=== PATIENT | male | born 1950 | race Caucasian/White ===

== ENCOUNTER 2017-02-05 14:11 | Day surgery (SDC) | payer OTHER ==
[2017-02-05] MEDS ORDERED: MIDAZOLAM 2 MG/2 ML VIAL IVP ONE (14:25)
[2017-02-05] MEDS ORDERED: fentaNYL 100 MCG/2 ML INJ IVP ONE (14:25)
[2017-02-05] MEDS ORDERED: NS 500 ML IV ONE (14:25)
[2017-02-05] MEDS ORDERED: BENZOCAINE UNIT DOSE SPRAY HURRICAINE MM ONE (14:25)
[2017-02-05] MEDS ORDERED: PROPOFOL/EMULSION 500 MG/50 ML BOTTLE IV ONE (15:05)
[2017-02-05] MEDS ORDERED: LIDOCAINE 1% 5 ML SDV ONE (15:06)
[2017-02-05] MEDS ORDERED: SUCCINYLCHOLINE CHLORIDE*ANESTHESIA ONLY*200 MG/10 ML SYR IVP ONE (15:06)
--- NOTE | 2017-02-05 15:15 | PDANEPAE ---
ANE Past Medical History - Cardiovascular History Hx Hypertension: No Hx Arrhythmias: No Hx Chest Pain: No Hx Coronary Artery / Peripheral Vascular Disease: No Hx CHF / Valvular Disease: No Hx Palpitations: No Cardiovascular History Comment: Mitral valve prolapse - Pulmonary History Hx COPD: No Hx Asthma/Reactive Airway Disease: No Hx Recent Upper Respiratory Infection: No Hx Oxygen in Use at Home: No Hx Sleep Apnea: No - Neurologic History Hx Cerebrovascular Accident: No Hx Seizures: No Hx Dementia: No - Endocrine History Hx Diabetes: No Hypothyroid: No Hyperthyroid: No Obesity: no - Renal History Hx Renal Disorders: No - Liver History Hx Hepatic Disorders: No - Neurological & Psychiatric Hx Hx Neurological and Psychiatric Disorders: No ANE Review of Systems Review of Systems: ANE Patient History - Allergies Allergies/Adverse Reactions: No Known Allergies Allergy (Unverified 02/05/17 14:25) - Smoking Hx Smoking Status: Former smoker ANE Labs/Vital Signs - Vital Signs Height: 173 cm Weight: 63.5 kg ANE Physical Exam - Airway Neck exam: FROM Mallampati Score: Class 1 Mouth exam: normal dental/mouth exam - Pulmonary Pulmonary: no respiratory distress - Cardiovascular Cardiovascular: regular rate and rhythym - ASA Status ASA Status: II ANE Anesthesia Plan Anesthesia Plan: GA with mask
--- NOTE | 2017-02-05 16:40 | ECHO ---
[email or web address] [address] [address] Main: [phone] Fax: Transesophageal Echocardiography Name: SYLWIA BOGGS MR#: [id number] Study Date: 02/05/2017 Study Time: 03:06 PM Date of : 1950 Age: 66 year(s) Height: ( ) Weight: ( ) BSA: Gender: Male Examination: KARMA Indication: Mitral valve prolapse Image Quality: Contrast: Requested by: Arun Garcia Heart Rate: Rhythm: BP: / Procedure Staff Lubricating Specialist: Benjamin Corona Reading Physician: Arun Garcia Requesting Provider: KARMA Exam Details Conclusions: Normal global systolic LV function. There is severe prolapse of the posterior leaflet of the mitral valve. Severe mitral valve regurgitation is present. There is a hypermobile structure consistent with torn chordae noted in the left atrium. Measurements: Chambers Valvular Assessment AV/MV Valvular Assessment TV/PV Normal Normal Normal Name Value Range Name Value Range Name Value Range Additional Measurements: Findings: Left Ventricle: Normal global systolic LV function. Left Atrial Appendage: Good color flow doppler in the left atrial appendage. Mitral Valve: There is severe prolapse of the posterior leaflet of the mitral valve. Severe mitral valve regurgitation is present. There is a hypermobile structure consistent with torn chordae noted in the left atrium. Aortic Valve: The aortic valve is tri-leaflet. The aortic valve is normal in appearance and function. Trivial aortic valve regurgitation. Patient: SYLWIA BOGGS Study Date: 02/05/2017 Page 1 of 2 03:06 PM Tricuspid Valve: The tricuspid valve is normal in appearance and function. Pulmonic Valve: The pulmonic valve is normal in appearance and function. Aorta: The aorta is normal. Pericardium: No pericardial effusion. l1n (No Signature Object) Patient: SYLWIA BOGGS Study Date: 02/05/2017 Page 2 of 2 03:06 PM [id number]
--- NOTE | 2017-02-05 21:51 | GPN ---
[f rep st] PROCEDURE NOTE DATE OF PROCEDURE: 02/05/2017 PROCEDURE PERFORMED: Transesophageal echocardiogram. INDICATION FOR PROCEDURE: Severe mitral valve prolapse with severe mitral regurgitation. DESCRIPTION OF PROCEDURE: After informed consent was obtained, Mr. Gutierrez was brought to the cardiac procedure suite. He signed consents for both KARMA and anesthesia with the assistance of Anesthesia. Once consents were obtained, a bite block was put in place. The patient was sedated with propofol. Once the appropriate level of sedation was achieved, KARMA probe was passed without incident. KARMA pro be was used to take images of all cardiac structures with primary focus on the mitral valve. Please see complete 2-D echocardiogram for full report. The patient tolerated the procedure well. There we re no complications. The probe was removed. He awoke from sedation without complications. He is fe eling well at the time of this dictation. CONCLUSIONS: Severe P2 prolapse of the posterior leaflet with what appeared to be ruptured chordae. Severe eccentric anteriorly directed mitral regurgitation. PLAN: We will consult with Dr. Dailey for surgical opinion regarding mitral valve repair. /[id number]/MODL
== END 2017-02-05 17:06 | disposition home or self-care (01) ==
LOC: FCATH 14:11
PROVIDERS: ATTEND Internal Medicine Cardiovascular Disease
PROC: B245ZZ4 Ultrasonography of Left Heart, Transesophageal (ICD-10-PCS; principal; 2017-02-05)
DX: I34.0 Nonrheumatic mitral (valve) insufficiency (principal); I34.1 Nonrheumatic mitral (valve) prolapse; I25.10 Atherosclerotic heart disease of native coronary artery without angina pectoris; Z79.82 Long term (current) use of aspirin
CPT/HCPCS: J0330; J2704

== ENCOUNTER 2017-04-02 14:12 | Inpatient (IN) | payer OTHER ==
[2017-04-02] MEDS ORDERED: DIAZEPAM 5 MG TAB PO ONE (14:18)
[2017-04-02] MEDS ORDERED: FAMOTIDINE 20 MG TAB PO ONE (14:18)
[2017-04-02] MEDS ORDERED: ASPIRIN EC 325 MG TAB PO ONE (14:18)
[2017-04-02] MEDS ORDERED: diphenhydrAMINE 25 MG CAP PO ONE (14:18)
[2017-04-02] MEDS ORDERED: NS 1,000 ML IV ONE (14:18)
--- NOTE | 2017-04-02 14:42 | CPEKG ---
Heart Rate: 61 RR Interval: 984 P-R Interval: 152 QRSD Interval: 80 QT Interval: 404 QTC Interval: 407 P Alma: 47 QRS Alma: 55 T Wave Alma: 46 EKG Severity - NORMAL ECG - EKG Impression: SINUS RHYTHM Electronically Signed By: Duane Siddiqui 03-Apr-2017 13:07:57
--- NOTE | 2017-04-02 14:56 | PDHPUP ---
History & Physical Update H&P update statement: This history and physical update is based on an assessment of the patient which was completed after admission or registration (within 24 hours), but prior to the surgery/procedure. Mr. Gutierrez is a 67 year old gentleman with severe MR and Mitral Valve prolapse with suspected chordal rupture who presents for pre operative Left Heart Catheterization. He had known CAD based on Calicum Score H&P update: H&P reviewed & patient examined, no change in patient's condition since H&P completed
--- NOTE | 2017-04-02 14:56 | PDPROPOC ---
Sedation Plan of Care Sedation Plan of Care: vital signs stable, mental status noted, patient educated of risks, benefits, alternatives, patient can tolerate sedation ASA Classification: ASA 2 Planned drugs: fentanyl, midazolam Mallampati Score: Class 2 Mallampati Reference Image: Patient passed 3-3-2 rule?: Yes
[2017-04-02] MEDS ORDERED: LIDOCAINE 1% 300 MG/30 ML SDV ONE (14:59)
[2017-04-02 15:00] LABS: PLATELET COUNT 181 10^3/uL (150-400)
[2017-04-02] MEDS ORDERED: fentaNYL 100 MCG/2 ML INJ ONE (15:00)
[2017-04-02] MEDS ORDERED: IOPAMIDOL (ISOVUE-370) 150 ML BTL IV ONE (15:00)
[2017-04-02] MEDS ORDERED: MIDAZOLAM 2 MG/2 ML VIAL ONE (15:00)
[2017-04-02 15:14] LABS: INR 0.95 (0.83-1.16); PROTIME(PATIENT) 12.9 SEC (12.0-15.0)
[2017-04-02] MEDS ORDERED: ATROPINE SULFATE 1 MG/10 ML SYR ONE (16:44)
[2017-04-02] MEDS ORDERED: HYDROCODONE/APAP 5/325 TAB PO PRN (16:48)
[2017-04-02] MEDS ORDERED: OXYCODONE/APAP 5/325 TAB PO PRN (16:48)
[2017-04-02] MEDS ORDERED: ATROPINE SULFATE 1 MG/10 ML SYR IVP PRN (16:48)
[2017-04-02] MEDS ORDERED: ONDANSETRON 4 MG/2 ML VIAL IVP PRN (16:48)
[2017-04-02] MEDS ORDERED: NITROGLYCERIN 0.4 MG BTL SL PRN (16:48)
[2017-04-02] MEDS: PHENobarbital 30 MG TAB PO SCH (20:19)
[2017-04-02] MEDS: SENNOSIDES/DOCUSATE SODIUM TAB PO SCH (20:19)
[2017-04-02] MEDS: MUPIROCIN 2% 22 GM OINT NS SCH (20:20)
[2017-04-02] MEDS: PHENYTOIN SODIUM EXTENDED 100 MG CAP PO SCH (20:20)
[2017-04-02] MEDS ORDERED: CHLORHEXIDINE GLUC HIBICLENS 118 ML BTL TP SCH (21:00)
--- NOTE | 2017-04-03 03:00 | GPN ---
[f rep st] PROCEDURE NOTE DATE OF PROCEDURE: 04/02/2017 PROCEDURE PERFORMED: Diagnostic left heart catheterization. INDICATION FOR PROCEDURE: Preoperative evaluation in anticipation of mitral valve replacement tomorr ow with Dr. Dailey in the setting of severe mitral regurgitation and P2 mitral valve prolapse. PROCEDURE: After informed conformed consent was obtained, the patient was brought to the cardiac cat heterization lab where he was prepped and draped in sterile fashion. Using the micropuncture technBackpack ue with modified Seldinger technique, 6-Pu[place] Rican catheter was placed in the right common femoral artery without complications. JL4.5 catheter was used to take images of the left coronary anatomy in multi ple projections. The JL4 catheter was exchanged over a guidewire for a JR4 catheter. JR4 catheter w as used to take images of the right coronary anatomy in multiple projections. JR4 catheter exchanged over a guidewire for angled pigtail catheter. Angled pigtail catheter was used to cross the aortic valve. LVEDP was assessed. Left ventricular function and aortic valve gradient were assessed. Angl ed pigtail catheter was removed over a guidewire without complications. Imaging of the right common femoral artery site demonstrated appropriate placement of the 6-Pu[place]ican sheath above the bifurcation a nd below the level of the inguinal ligament. FINDINGS: 1. Left main is normal size and caliber and trifurcates into a circumflex coronary artery, ramus bra nch, and LAD. There is no evidence of coronary artery disease within the left main. 2. Left anterior descending artery has multiple small diagonal branches and septal perforators. The re is no evidence of coronary artery disease within the left anterior descending artery or branch ves sels. 3. Circumflex vessel is a nondominant vessel. There is a small first obtuse marginal branch. There is no evidence of coronary artery disease within the obtuse marginal branch. Ramus branch is free o f coronary artery disease, as well. 4. The right coronary artery is a large caliber dominant vessel that branches into PDA and PLV branc h. There is no evidence of coronary artery disease within the right coronary artery. HEMODYNAMICS: LVEF 60% to 65%. LVEDP 11 mmHg. Aortic valve gradient: None. There was 2 to 3+ mitral regurgitation noted on left ventriculogram. CONCLUSIONS: 1. Normal coronary arteries. 2. Normal left ventricular function. 3. Severe mitral regurgitation. PLAN: I have discussed these finding results with Dr. Dailey. No plan for coronary artery bypass gra ft surgery. /[id number]/MODL
[2017-04-03] MEDS ORDERED: VERAPAMIL 5 MG, NITROGLYCERIN 2.5 MG, HEPARIN 500 UNIT, SODIUM BICARBONATE 0.2 MEQ in L... MISC ONE (06:30)
[2017-04-03] MEDS ORDERED: INSULIN REGULAR HUMAN 100 UNIT in NS 100 ML IV ONE (06:30)
[2017-04-03] MEDS ORDERED: TRANEXAMIC ACID 1,000 MG in NS (SYRINGE) 50 ML IV ONE (06:30)
[2017-04-03] MEDS ORDERED: niCARdipine/NACL 200 ML IV ONE (06:30)
[2017-04-03] MEDS ORDERED: MANNITOL 25% 12.5 GM/50 ML VIAL IVP ONE (06:30)
[2017-04-03] MEDS ORDERED: NOREPINEPHRINE BITARTRATE 16 MG in NS 250 ML IV ONE (06:30)
[2017-04-03] MEDS ORDERED: DOPamine 400 MG in D5W 250 ML IV ONE (06:30)
[2017-04-03] MEDS ORDERED: CITRATE DEXTROSE SOLN 500 ML BAG MISC ONE (06:30)
[2017-04-03] MEDS ORDERED: ceFAZolin 2 GM/SWFI 2 GM/20 ML SYR IVP ONE (06:30)
[2017-04-03] MEDS ORDERED: PHENYLEPHRINE HCL 50 MG in NS 250 ML IV ONE (06:30)
[2017-04-03] MEDS ORDERED: SODIUM BICARBONATE 20 MEQ, LIDOCAINE 1% 10 ML in NORMOSOL-R 1,000 ML MISC ONE (06:30)
[2017-04-03] MEDS ORDERED: MILRINONE/DEXTROSE/100 ML BAG IV ONE (06:40)
[2017-04-03] MEDS ORDERED: CALCIUM CHLORIDE 1 GM/10 ML INJ ONE ×3 (06:40→12:01)
[2017-04-03] MEDS ORDERED: PROTAMINE SULFATE 50 MG/5 ML VIAL IVP ONE (06:40)
[2017-04-03] MEDS ORDERED: HEPARIN 10,000 UNIT/10 ML MDV (1,000 UNIT/ML) ONE ×2 (06:41→06:44)
[2017-04-03] MEDS ORDERED: NA BICARBONATE 50 MEQ/50 ML VIAL ONE (06:41)
[2017-04-03] MEDS ORDERED: ADENOSINE 6 MG/2 ML VIAL ONE (06:42)
[2017-04-03] MEDS ORDERED: niCARdipine/NACL/200 ML BAG IV ONE (06:42)
[2017-04-03] MEDS ORDERED: AMIODARONE HCL 150 MG/3 ML VIAL ONE ×2 (06:42→06:45)
[2017-04-03] MEDS ORDERED: ALBUMIN 5% 250 ML BOTTLE IV ONE ×2 (06:43→11:38)
[2017-04-03] MEDS ORDERED: ceFAZolin 1 GM VIAL ONE (06:43)
[2017-04-03] MEDS ORDERED: CITRATE DEXTROSE SOLN 500 ML BAG ONE (06:44)
[2017-04-03] MEDS ORDERED: LIDOCAINE 2% 100 MG/5 ML SYR ONE ×2 (06:44→08:45)
[2017-04-03] MEDS ORDERED: MAGNESIUM SULFATE 1 GM/2 ML VIAL ONE (06:45)
[2017-04-03] MEDS ORDERED: methylPREDNISolone SOD SUCC 1 GM/8 ML VIAL ONE (06:45)
--- NOTE | 2017-04-03 08:12 | PDHPUP ---
History & Physical Update H&P update statement: This history and physical update is based on an assessment of the patient which was completed after admission or registration (within 24 hours), but prior to the surgery/procedure.
[2017-04-03] MEDS ORDERED: MIDAZOLAM 2 MG/2 ML VIAL ONE ×2 (08:21→08:41)
--- NOTE | 2017-04-03 08:23 | PDANEPAE ---
ANE History of Present Illness severe MR s/f MV Repair, sternotomy ANE Past Medical History - Cardiovascular History Hx Hypertension: No Hx Arrhythmias: No Hx Chest Pain: No Hx Coronary Artery / Peripheral Vascular Disease: No Hx CHF / Valvular Disease: No Hx Palpitations: No Cardiovascular History Comment: Mitral valve prolapse. MURMUR - Pulmonary History Hx COPD: No Hx Asthma/Reactive Airway Disease: No Hx Recent Upper Respiratory Infection: No Hx Oxygen in Use at Home: No Hx Sleep Apnea: No Sleep Apnea Screening Result - Last Documented: Negative Pulmonary History Comment: PNEUMONIA 2007 - Neurologic History Hx Cerebrovascular Accident: No Hx Seizures: No Hx Dementia: No Neurologic History Comment: EPILEPSY SINCE AGE 15 - Endocrine History Hx Diabetes: No - Renal History Hx Renal Disorders: No Renal History Comment: DOES NOT HAVE 100 PERCENT FLOW RESULT OF INJURY AGE 15 - Liver History Hx Hepatic Disorders: No - Neurological & Psychiatric Hx Hx Neurological and Psychiatric Disorders: No - Cancer History Hx Cancer: No - Congenital Disorder History Hx Congenital Disorders: No - GI History Hx Gastrointestinal Disorders: No - Other Health History Other Health History: NEG - Chronic Pain History Chronic Pain: No - Surgical History Prior Surgeries: RT CATARACT. VASECTOMY ANE Review of Systems Review of Systems: - Exercise capacity METS (RN): 4 METS ANE Patient History - Allergies Allergies/Adverse Reactions: No Known Allergies Allergy (Verified 03/26/17 10:48) - Home Medications Home medications: home medication list seen and reviewed Home Medications: Aspirin [Aspirin 81mg (*)] 81 mg PO Q7D 03/26/17 [Last Taken 03/29/17] Cholecalciferol Vit D3 [Vitamin D3 (*)] 5,000 units PO DAILY 03/26/17 [Last Taken 03/29/17] Quanah-3 Fatty Acids [Fish Oil 1000 mg (*)] 1,000 mg PO DAILY 03/26/17 [Last Taken 03/29/17] PHENobarbital [PHENobarbital 30mg (*)] 30 mg PO HS 03/26/17 [Last Taken 04/01/17 ] Phenytoin Sodium Extended [Dilantin (*)] 100 mg PO HS 03/26/17 [Last Taken 04/01] Rosuvastatin Calcium [Crestor 40mg (*)] 40 mg PO DAILY 03/26/17 [Last Taken ] - NPO status NPO Status: no food or drink >8 hours NPO Since - Liquids (Date): 04/03/17 NPO Since - Liquids (Time): 00:00 NPO Since - Solids (Date): 04/03/17 NPO Since - Solids (Time): 00:00 - Anes Hx Anes Hx: no prior problems - Smoking Hx Smoking Status: Former smoker - Alcohol Use Alcohol Use: Occasionally - Family Anes Hx Family Anes Hx: none Family Hx Anesthesia Complications: NEG ANE Labs/Vital Signs - Labs Result Diagrams: 04/02/17 14:50 04/03/17 05:20 - Vital Signs Blood Pressure: 120/65 Heart Rate: 60 Respiratory Rate: 14 O2 Sat (%): 94 Height: 173 cm Weight: 62.1 kg ANE Physical Exam - Airway Mouth exam: normal dental/mouth exam - Pulmonary Pulmonary: no respiratory distress - Cardiovascular Cardiovascular: regular rate and rhythym - ASA Status ASA Status: II ANE Anesthesia Plan Anesthesia Plan: general endotracheal anesthesia Lines/Monitors: arterial line, central line, KARMA
[2017-04-03] MEDS ORDERED: REMIFENTANIL HCL 1 MG VIAL ONE (08:41)
[2017-04-03] MEDS ORDERED: fentaNYL 250 MCG/5 ML INJ ONE (08:41)
[2017-04-03] MEDS ORDERED: PROPOFOL/EMULSION 500 MG/50 ML BOTTLE IV ONE (08:42)
[2017-04-03] MEDS ORDERED: ROCURONIUM 100 MG/10 ML VIAL ONE (08:44)
[2017-04-03] MEDS ORDERED: PHENYLEPHRINE HCL 100 MCG/ML SYR ONE (08:44)
[2017-04-03] MEDS ORDERED: ONDANSETRON 4 MG/2 ML VIAL ONE (08:44)
[2017-04-03] MEDS ORDERED: DEXAMETHASONE 4 MG/ML VIAL ONE ×2 (08:44)
[2017-04-03] MEDS ORDERED: LIDOCAINE HCL 160 MG/4 ML LTA KIT TP ONE (08:45)
[2017-04-03] MEDS ORDERED: MIDAZOLAM 2 MG/2 ML VIAL IVP ONE (10:08)
[2017-04-03] MEDS ORDERED: MAGNESIUM SULF 2 GM/WATER 50 ML BAG IV ONE (11:38)
[2017-04-03] MEDS ORDERED: MINERAL OIL 10 ML VIAL ONE (11:52)
[2017-04-03] MEDS ORDERED: DEXMEDETOMIDINE/NS 4MCG/ML 50 ML BTL IV ONE (11:52)
[2017-04-03] MEDS ORDERED: DEXMEDETOMIDINE HCL 400 MCG in NS 100 ML IV SCH (12:00)
[2017-04-03] MEDS ORDERED: fentaNYL 25 MCG PATCH TD SCH (12:00)
[2017-04-03] MEDS ORDERED: KETOROLAC 30 MG/1 ML SDV ONE (12:18)
[2017-04-03] MEDS ORDERED: SUGAMMADEX SODIUM 200 MG/2 ML VIAL IVP ONE (12:20)
[2017-04-03] MEDS ORDERED: PANTOPRAZOLE SODIUM 40 MG VIAL IVP ONE (12:36)
[2017-04-03] MEDS ORDERED: D50W 25 GM/50 ML SYR IVP PRN (12:36)
[2017-04-03] MEDS ORDERED: ONDANSETRON 4 MG/2 ML VIAL IVP PRN (12:36)
[2017-04-03] MEDS ORDERED: SODIUM CL NASAL 45 ML BTL EACHNARE PRN (12:36)
[2017-04-03] MEDS ORDERED: MAGNESIUM HYDROXIDE 30 ML UDCUP PO PRN (12:36)
[2017-04-03] MEDS ORDERED: fentaNYL 100 MCG/2 ML INJ IVP PRN (12:36)
[2017-04-03] MEDS ORDERED: LACTULOSE 20 GM/30 ML UDCUP PO PRN (12:36)
[2017-04-03] MEDS ORDERED: BISACODYL 10 MG SUPP PR PRN (12:36)
[2017-04-03] MEDS ORDERED: MEPERIDINE 25 MG/ML SYR IVP PRN (12:36)
[2017-04-03] MEDS ORDERED: ACETAMINOPHEN 650 MG SUPP PR PRN (12:36)
[2017-04-03] MEDS ORDERED: POTASSIUM Cl (KCl) 50 ML IV PRN (12:36)
[2017-04-03] MEDS ORDERED: METOCLOPRAMIDE 10 MG/2 ML VIAL IVP PRN (12:36)
[2017-04-03] MEDS ORDERED: ACETAMINOPHEN 325 MG TAB PO PRN (12:36)
[2017-04-03] MEDS ORDERED: POLYETHYLENE GLYCOL 3350 17 GM PKT PO PRN (12:36)
[2017-04-03] MEDS ORDERED: CEPACOL LOZENGE PO PRN (12:36)
[2017-04-03] MEDS ORDERED: ONDANSETRON DISINTEGRATING 4 MG TAB PO PRN (12:36)
[2017-04-03] MEDS ORDERED: MAGNESIUM SULF 2 GM/WATER 50 ML IV ONE (12:36)
[2017-04-03] MEDS ORDERED: NS 1,000 ML IV SCH (12:45)
[2017-04-03] MEDS ORDERED: INSULIN REGULAR HUMAN 100 UNIT in NS 100 ML IV SCH (13:00)
[2017-04-03] MEDS ORDERED: SODIUM BICARBONATE 50 MEQ/50 ML SYR ONE (13:22)
[2017-04-03] MEDS: ceFAZolin 2 GM/DEXTROSE 100 ML IV SCH ×2 (13:43→22:01)
[2017-04-03] MEDS: ALBUMIN 5% 250 ML IV PRN ×2 (13:45→14:46)
[2017-04-03] MEDS ORDERED: NA BICARBONATE 50 MEQ/50 ML VIAL IV ONE (14:30)
--- NOTE | 2017-04-03 14:33 | CPEKG ---
Heart Rate: 61 RR Interval: 984 P-R Interval: 128 QRSD Interval: 80 QT Interval: 484 QTC Interval: 488 P Viola: -77 QRS Viola: 63 T Wave Viola: 37 EKG Severity - ABNORMAL ECG - EKG Impression: SINUS OR ECTOPIC ATRIAL RHYTHM EKG Impression: MULTIPLE ATRIAL PREMATURE COMPLEXES EKG Impression: BORDERLINE PROLONGED QT INTERVAL Electronically Signed By: Duane Siddiqui 05-Apr-2017 09:01:45
[2017-04-03] MEDS: MUPIROCIN 2% 22 GM OINT NS SCH ×2 (14:50→20:13)
[2017-04-03] MEDS: SENNOSIDES/DOCUSATE SODIUM TAB PO SCH ×2 (14:51→22:01)
[2017-04-03] MEDS: KETOROLAC 15 MG/1 ML SDV IVP SCH (17:00)
--- NOTE | 2017-04-03 18:18 | GOP ---
[f rep st] OPERATIVE REPORT DATE OF OPERATION: 04/03/2017 SURGEON: Chava Dailey DO PAINTER SKI EDGE: Fox Hewitt PA-C. ANESTHESIOLOGIST: Dr. Rawls PREOPERATIVE DIAGNOSIS: Severe mitral regurgitation with P2 rupture, and left atrial enlargement. POSTOPERATIVE DIAGNOSIS: Severe mitral regurgitation with P2 rupture, and left atrial enlargement. PROCEDURE PERFORMED: Complex mitral valve repair with triangular resection of P2 and chordal reconst ruction to P2. FINDINGS: DESCRIPTION OF PROCEDURE: Patient was consented for surgery, brought to the operating room, intubate d, monitoring lines were placed. He was prepped and draped in sterile classical manner. A sternotom y was performed. He was heparinized, cannulated. The heart appeared to be slightly enlarged, but tinajero d good biventricular function without significant LV or RV chamber enlargement. Left atrium was mode rately enlarged on echo. Intraoperative transesophageal echo revealed a rupture of chordae to P2 wit h severe mitral insufficiency. He was heparinized, cannulated with bicaval cannulae and a retrograde catheter as well as antegrade catheter. Cardiopulmonary bypass was begun. A cardioplegic arrest wa s obtained with antegrade cardioplegia, retrograde cardioplegia, topical hypothermia, and systemic co oling. Initially, the left atrial appendage was ligated with a 35 mm left atrial appendage clip flush with t he left atrium, avoiding the circumflex vessel. We then exposed the mitral valve through the right s uperior pulmonary vein. A retractor was placed. The valve was inspected and as per echo, had a flai l P2. The valve appeared to be mildly myxomatous but not particularly enlarged with some posterior a nnular dilatation noted. Circumferential annuloplasty sutures were placed with 2-0 Tycron for better exposure. We then did a triangular resection of P2, repairing it with a double layer of continuous running 4-0 Prolene. Distention of the ventricle revealed no regurgitation. Putting ink on the leaf lets revealed slightly diminished coaptation compared to the rest of the valve at approximately half a centimeter at P2 and for that reason, a Veda suture was placed through the posterior medial papilla ry muscle, and a single suture was brought to the edge of the P2 repair, reconstructing a chord to th e area. Distention of the ventricle revealed just trace regurgitation with marked distention at the commissures. Because of the small valve size, I did not put any additional sutures. We then sized t he patient for a 28 mm Physio ring, which was sutured in place with Cor-Knots. The left atrium was c losed and LV sump was placed across the valve into the left ventricle. The cross-clamp was removed i n Trendelenburg. He was de-aired, rewarmed, weaned from bypass. The heparin was reversed with prota mine. Cannula was removed and oversewn. Two ventricular pacing wires, 1 right pleural and 1 mediast inal drain were placed. The thymic fat and pericardium were closed. Chest was closed in standard fa shion after the sponge and needle count were correct. The patient was extubated in the OR and return ed to ICU in stable condition. /[id number]/MODL
[2017-04-03] MEDS: PHENobarbital 30 MG TAB PO SCH (19:52)
[2017-04-03] MEDS: PHENYTOIN SODIUM EXTENDED 100 MG CAP PO SCH (19:52)
[2017-04-03] MEDS: HYDROCODONE/APAP 5/325 TAB PO PRN (20:13)
[2017-04-04] MEDS: KETOROLAC 15 MG/1 ML SDV IVP SCH ×5 (00:42→23:06)
[2017-04-04] MEDS: HYDROCODONE/APAP 5/325 TAB PO PRN ×4 (00:42→22:36)
[2017-04-04] MEDS: ALBUMIN 5% 250 ML IV PRN (02:48)
[2017-04-04 05:20] LABS: PLATELET COUNT 70 10^3/uL (150-400)
[2017-04-04] MEDS: ceFAZolin 2 GM/DEXTROSE 100 ML IV SCH ×3 (05:27→22:28)
[2017-04-04 05:41] LABS: INR 1.24 (0.83-1.16); PROTIME(PATIENT) 15.8 SEC (12.0-15.0)
[2017-04-04] MEDS ORDERED: HEPARIN 5,000 UNIT/0.5 ML SYR SC SCH (06:00)
--- NOTE | 2017-04-04 06:22 | SOAPPROG ---
SOAP Progress Note Assessment/Plan: POD #1: Complex MV repair, AtriClip LAITH Severe MR s/p repair - CTs to bulb suction, VPW to remain on back-up @ 50, FC and AL out - SCDs for DVT prophylaxis, heparin SQ once platelets > 100 - Will avoid beta-blockers d/t baseline dyllan arrhythmia - PT/OT Acute blood loss anemia - HCT drifting lower with hypotension - will transfuse 1U of PRBC and recheck H/ H h/o remote urethral stricture s/p dilatation requiring coude catheter placement - DC catheter this morning and monitor for urinary retention Subjective: Denies pain/SOB. Fingers feel puffy. Objective: Vital Signs Temp Pulse Resp BP Pulse Ox 36.9 C 57 L 20 102/47 L 97 04/04/17 04:00 04/04/17 06:00 04/04/17 06:00 04/04/17 06:00 04/04/17 06:00 Laboratory Results 04/04/17 05:00 04/04/17 05:00 04/03/17 04/04/17 04/05/17 05:59 05:59 05:59 Intake Total 850 2377.1 Output Total 1900 Balance 850 477.1 PT 15.8 SEC (12.0-15.0) H 04/04/17 05:00 INR 1.24 (0.83-1.16) H 04/04/17 05:00 Physical Exam - Physical Exam General Appearance: WD/WN, alert, no apparent distress EENT: No scleral icterus (R), No scleral icterus (L) Neck: normal inspection Respiratory: No respiratory distress Cardiac/Chest: bradycardia Abdomen: non-tender, soft, No distended Skin: normal color, warm/dry Extremities: No pedal edema Neuro/Psych: no motor/sensory deficits, alert, normal mood/affect, oriented x 3 ICD10 Worksheet Patient Problems: Problems Problem Status Onset Severe mitral regurgitation Acute H/O urethral stricture Chronic
--- NOTE | 2017-04-04 07:25 | POSTANESTH ---
Post Anesthetic Evaluation Cardiovascular Status: Normal, Stable Respiratory Status: Tx Decrease in SpO2 Level of Consciousness/Mental Status: Can Participate in Eval Pain Control: Adequate, Prn Tx Ordered Nausea/Vomiting Control: Adequate, Prn Tx Ordered Complications Possibly Related to Anesthesia: None Noted
[2017-04-04] MEDS ORDERED: traMADol 50 MG TAB PO PRN (07:41)
[2017-04-04] MEDS ORDERED: ASPIRIN 81 MG CHEWABLE TAB PO SCH (09:00)
--- NOTE | 2017-04-04 09:23 | ASMTCMCOM ---
CM Note CM Note Notes: Patient is POD #1 complex MV repair. He is stable and recovering in the ICU with transfer orders to the PCU. PT/OT evals have been ordered. Patient lives locally with his . Case Managment will follow for discharge planning. Date Signed: 04/04/2017 09:22 AM Electronically Signed By:Alise Harper RN
[2017-04-04] MEDS: MUPIROCIN 2% 22 GM OINT NS SCH ×2 (09:39→22:33)
[2017-04-04] MEDS: PANTOPRAZOLE SODIUM 40 MG TAB PO SCH (09:39)
[2017-04-04] MEDS: SENNOSIDES/DOCUSATE SODIUM TAB PO SCH ×2 (09:39→22:36)
[2017-04-04] MEDS ORDERED: ALBUMIN 5% 250 ML IV ONE (10:00)
[2017-04-04] MEDS ORDERED: ALBUMIN 5% 250 ML BOTTLE IV ONE (14:30)
[2017-04-04] MEDS ORDERED: WARFARIN SODIUM 2.5 MG TAB PO ONE (16:00)
[2017-04-04] MEDS: PHENYTOIN SODIUM EXTENDED 100 MG CAP PO SCH (22:33)
[2017-04-04] MEDS: PHENobarbital 30 MG TAB PO SCH (22:33)
[2017-04-05] MEDS: HYDROCODONE/APAP 5/325 TAB PO PRN ×4 (02:44→22:26)
[2017-04-05] MEDS: KETOROLAC 15 MG/1 ML SDV IVP SCH (05:52)
[2017-04-05 06:32] LABS: INR 1.19 (0.83-1.16); PROTIME(PATIENT) 15.3 SEC (12.0-15.0)
--- NOTE | 2017-04-05 08:13 | SOAPPROG ---
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 Stable early postop course. Moderate volume overload well tolerated. AF prophylaxis with BB as allowed by HR and BP. Antithrombotic prophylaxis with Coumadin x 3 months, target INR 2-3. Acute expected blood loss anemia with thrombocytopenia - Stable s/p 1u PRBC. Care with anticoag while platelets depressed. Hx remote urethral stricture - Coude catheter placed intraop. Catheter removed yest without incident. Epilepsy - Controlled. Anti seizure meds resumed. Plan: Stop Toradol. Vwires and mediastinal drain removed. Coumadin 2.5 mg today. Cont inc activity and pulm toilet. Wean O2. Dispo - Anticipate home in 2 days. 04/05/17 08:13 Subjective: Feels well. 1 lap around the nolan this am well tolerated. Satisfactory analgesia. Not much appetite, happy with smoothies for now. Objective: Vital Signs Temp Pulse Resp BP Pulse Ox 36.8 C 63 12 91/56 L 95 04/05/17 07:10 04/05/17 07:10 04/05/17 07:10 04/05/17 07:10 04/05/17 07:10 Laboratory Results 04/04/17 16:11 04/04/17 14:18 04/04/17 04/05/17 04/06/17 05:59 05:59 05:59 Intake Total 2377.1 2157 150 Output Total 1900 1300 265 Balance 477.1 857 -115 PT 15.3 SEC (12.0-15.0) H 04/05/17 05:55 INR 1.19 (0.83-1.16) H 04/05/17 05:55 Holding SR > 60. SBP marginal, but MAPs > 65 and adequate UOP. Excellent sats on 1-2 lpm O2. CXR -> No PTX. Hypoventilation with small bilat pl eff, L>R. Mediastinal drain at removal criteria. Physical Exam - Physical Exam General Appearance: alert, no apparent distress Respiratory: decreased breath sounds (bases, o/w CTA), other (Blakes x 2 to bulb suction, thin serosang drainage. Mediastinal drain removed without incident.) Cardiac/Chest: regular rate, rhythm, other (Sternum grossly stable. Sternotomy CDI. Vwires removed without difficulty.) Abdomen: normal bowel sounds, non-tender, soft Skin: warm/dry Extremities: other (no visible leg edema) ICD10 Worksheet Patient Problems: Problems Problem Status Onset Acute blood loss anemia Acute Severe mitral regurgitation Acute Status post mitral valve annuloplasty Acute H/O urethral stricture Chronic
[2017-04-05] MEDS: SENNOSIDES/DOCUSATE SODIUM TAB PO SCH ×2 (09:03→22:24)
[2017-04-05] MEDS: PANTOPRAZOLE SODIUM 40 MG TAB PO SCH (09:03)
[2017-04-05] MEDS: MUPIROCIN 2% 22 GM OINT NS SCH (11:34)
[2017-04-05] MEDS ORDERED: FUROSEMIDE 20 MG/2 ML VIAL IVP ONE (15:54)
[2017-04-05] MEDS ORDERED: POTASSIUM CL 10 MEQ TAB PO ONE ×2 (15:54→21:00)
[2017-04-05] MEDS ORDERED: WARFARIN SODIUM 2.5 MG TAB PO ONE (16:00)
--- NOTE | 2017-04-05 16:07 | ASMTCMCOM ---
CM Note CM Note Notes: PT recommending Outpatient follow-up. OT recommending home no needs. Anticipate dc home with support of spouse & Cardiac Rehab when medically stable. CM will follow if needs/changes. Date Signed: 04/05/2017 04:06 PM Electronically Signed By:Ashley Doll RN
[2017-04-05] MEDS: PHENYTOIN SODIUM EXTENDED 100 MG CAP PO SCH (22:25)
[2017-04-05] MEDS: PHENobarbital 30 MG TAB PO SCH (22:25)
[2017-04-06 05:23] LABS: INR 1.2 (0.83-1.16); PROTIME(PATIENT) 15.4 SEC (12.0-15.0)
[2017-04-06] MEDS: HYDROCODONE/APAP 5/325 TAB PO PRN (07:53)
--- NOTE | 2017-04-06 08:01 | SOAPPROG ---
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 Stable early postop course. Adequately diuresing moderate volume overload. AF prophylaxis with BB as allowed by HR and BP. Antithrombotic prophylaxis with Coumadin x 3 months, target INR 2-3. Acute expected blood loss anemia with thrombocytopenia - Stable s/p 1u PRBC. Care with anticoag while platelets depressed. Hx remote urethral stricture - Coude catheter placed intraop. Catheter removed POD#1 without incident. Epilepsy - Controlled. Anti seizure meds resumed. Plan: Pleural drain removed. Stop duragesic. Coumadin 2.5 mg today. Cont daily diuresis. Lasix 40 mg po. Start metoprolol tartrate 12.5 mg BID with conservative hold parameters. Cont inc activity and pulm toilet. Baseline postop echo tomorrow. Dispo - Anticipate home tomorrow without services tomorrow. 04/06/17 07:59 Subjective: Pleuritic pains limiting mobility and comfort. Objective: Vital Signs Temp Pulse Resp BP Pulse Ox 37.3 C 71 12 101/58 L 94 04/06/17 07:23 04/06/17 07:23 04/06/17 07:23 04/06/17 07:23 04/06/17 07:23 Laboratory Results 04/04/17 16:11 04/04/17 14:18 04/05/17 04/06/17 04/07/17 05:59 05:59 05:59 Intake Total 2157 1670 120 Output Total 1300 1270 385 Balance 857 400 -265 PT 15.4 SEC (12.0-15.0) H 04/06/17 04:55 INR 1.20 (0.83-1.16) H 04/06/17 04:55 Holding SR with rates > 65. Few PACs overnoc. Min suppl O2 req. Pleural tube at removal criteria. Sl positive fluid balance, but wt down 1 kg. INR yet to budge. Other labs pending. Physical Exam - Physical Exam General Appearance: alert, no apparent distress Neck: other ([facility]J QLC withdrawn 2-3 cm to re-establish easy blood rtn from central port) Respiratory: crackles (bibasilar), other (pleural natalie to bulb suction, mostly serous drainage; removed without incident; instant relief noted.) Cardiac/Chest: regular rate, rhythm, other (Sternotomy CDI) Abdomen: non-tender, soft Skin: warm/dry Extremities: other (no visible leg edema) ICD10 Worksheet Patient Problems: Problems Problem Status Onset Acute blood loss anemia Acute Severe mitral regurgitation Acute Status post mitral valve annuloplasty Acute H/O urethral stricture Chronic
[2017-04-06] MEDS: SENNOSIDES/DOCUSATE SODIUM TAB PO SCH ×2 (08:54→20:30)
[2017-04-06] MEDS: PANTOPRAZOLE SODIUM 40 MG TAB PO SCH (08:54)
[2017-04-06] MEDS: FUROSEMIDE 40 MG TAB PO SCH (08:54)
[2017-04-06] MEDS: METOPROLOL TARTRATE 25 MG TAB PO SCH ×2 (10:01→20:31)
[2017-04-06] MEDS ORDERED: WARFARIN SODIUM 2.5 MG TAB PO ONE (16:00)
[2017-04-06] MEDS: PHENobarbital 30 MG TAB PO SCH (20:30)
[2017-04-06] MEDS: PHENYTOIN SODIUM EXTENDED 100 MG CAP PO SCH (20:30)
[2017-04-07 03:49] LABS: INR 1.51 (0.83-1.16); PROTIME(PATIENT) 18.4 SEC (12.0-15.0)
--- NOTE | 2017-04-07 07:51 | SOAPPROG ---
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 Stable early postop course. Adequately diuresing moderate volume overload. Antithrombotic prophylaxis with Coumadin x 3 months, target INR 2-3. Postoperative paroxysmal atrial fibrillation - Few asx bursts last noc, quickly reverting to usual HR in 70s. Sufficient BP to uptitrate BB. Hindman amio for recurrence. Antithrombotic prophylaxis as per MV rpr. Acute expected blood loss anemia with thrombocytopenia - Stable s/p 1u PRBC. Care with anticoag while platelets depressed. Hx remote urethral stricture - Coude catheter placed intraop. Catheter removed POD#1 without incident. Epilepsy - Controlled. Anti seizure meds resumed. Plan: Cont Coumadin 2.5 mg daily. Cont Lasix 40 mg daily. Inc metoprolol tartrate 25 mg BID. Baseline postop echo today. Dispo - Possibly home later today, pending stability of rhythm. 04/07/17 07:48 Subjective: Much more comfortable since pleural tube removed. Now walking with relative ease. Did feel heart pounding a bit last night when trying to get out of bed and O2 fell off. Objective: Vital Signs Temp Pulse Resp BP Pulse Ox 36.7 C 72 16 111/71 71 L 04/07/17 04:00 04/07/17 04:00 04/07/17 04:00 04/07/17 04:00 04/07/17 05:48 Laboratory Results 04/06/17 09:20 04/07/17 03:30 04/06/17 04/07/17 04/08/17 05:59 05:59 05:59 Intake Total 1670 1460 Output Total 1270 2009 Balance 400 -550 PT 18.4 SEC (12.0-15.0) H 04/07/17 03:30 INR 1.51 (0.83-1.16) H 04/07/17 03:30 Several self-limited bursts AF last pm. No assoc sx or hypotension. Both doses 12.5 mg metoprolol well tolerated. Almost off O2. Improving diuresis. INR on the rise. - Pending Discharge Pending Discharge Within 24 Hours: Yes Pending Discharge Date: 04/08/17 Pending Discharge Time: 11:00 Physical Exam - Physical Exam General Appearance: alert, no apparent distress Respiratory: normal breath sounds, other (CT sites clean and moist) Cardiac/Chest: regular rate, rhythm, other (Sternum grossly stable. Sternotomy CDI.) Abdomen: non-tender, soft Skin: warm/dry Extremities: other (no visible dependent edema) ICD10 Worksheet Patient Problems: Problems Problem Status Onset Acute blood loss anemia Acute Severe mitral regurgitation Acute Status post mitral valve annuloplasty Acute H/O urethral stricture Chronic
[2017-04-07] MEDS: METOPROLOL TARTRATE 25 MG TAB PO SCH ×3 (07:55→22:29)
[2017-04-07] MEDS: FUROSEMIDE 40 MG TAB PO SCH (07:55)
[2017-04-07] MEDS: CHOLECALCIFEROL VIT D3 1,000 UNITS TAB PO SCH (07:55)
[2017-04-07] MEDS: OMEGA-3 FATTY ACIDS 1,000 MG CAP PO SCH (07:56)
[2017-04-07] MEDS: PANTOPRAZOLE SODIUM 40 MG TAB PO SCH (07:56)
[2017-04-07] MEDS: ROSUVASTATIN CALCIUM 40 MG TAB PO SCH (07:56)
[2017-04-07] MEDS ORDERED: POTASSIUM CL 20 MEQ TAB PO ONE (09:00)
[2017-04-07] MEDS ORDERED: AMIODARONE HCL 200 ML IV ONE (10:12)
--- NOTE | 2017-04-07 11:13 | ECHO ---
[email or web address] [address] [address] Main: [phone] Fax: Transthoracic Echocardiogram Name: SYLWIA BOGGS MR#: [id number] Study Date: 04/07/2017 Study Time: 09:42 AM Date of : 1950 Age: 67 year(s) Height: 172.7 cm (68 in.) Weight: 70.76 kg (156 lb.) BSA: 1.84 m2 Gender: Male Examination: Echo Indication: S/P #28 Ziegler Phsio ring Image Quality: Contrast: Requested by: Jeny Casiano BP: 122 mmHg/65 mmHg Heart Rate: Rhythm: Indication: S/P #28 Ziegler Phsio ring Procedure Staff Medical Insurance Verifier: Benjamin Corona RDCS Reading Physician: Zaheer Munoz Requesting Provider: Conclusions: No pericardial effusion. Ejection fraction 64% with no regional wall motion abnormalities. Mitral valve ring without evidence of regurgitation or stenosis. Right ventricular systolic pressure 46 mm of mercury Measurements: Chambers Valvular Assessment AV/MV Valvular Assessment TV/PV Normal Normal Normal Name Value Range Name Value Range Name Value Range Ao Meenakshi (MM): 3.2 cm (2.2 cm-3.7 AV Vmax: 1.38 m/s (1 m/s-1.7 TR Vmax: 3.20 mm/s ( - ) cm) m/s) TR PGmax: 41 mmHg ( - ) IVSd (2D): 0.9 cm (0.6 cm-1.1 AV maxP mmHg ( - ) syst. PAP: 46 mmHg ( - ) cm) LVOT Vmax: 1.19 m/s (0.7 m/s-1.1 PV Vmax: 0.98 m/s (0.6 m/s-0.9 LVDd (2D): 4.8 cm (4.2 cm-5.9 m/s) m/s) cm) MV E Vmax: 1.64 m/s ( - ) PV PGmax: 4 mmHg ( - ) LVDs (2D): 3.1 cm (2.1 cm-4 MV A Vmax: 1.07 m/s ( - ) cm) MV E/A: 1.53 ( - ) LVPWd (2D): 0.9 cm (0.6 cm-1 MV meanP mmHg ( - ) cm) MV PHT: 0.084 s ( - ) LVEF (2D): 64 (>=54 %) MVA (PHT): 2.6 s ( - ) Continued Measurements: Chambers Valvular Assessment AV/MV Valvular Assessment TV/PV Name Value Name Value Name Value LADs Lon.0 cm MV Annulus: 3.2 cm CVP (est.): 5 mmHg LA Area: 16.9 cm2 MV DecTime: 282 m/s MV VTI: 54.40 cm Patient: SYLWIA BOGGS Study Date: 04/07/2017 Page 1 of 2 09:42 AM Findings: Left Ventricle: Normal size left ventricle. Normal global systolic LV function. EF is 64 %. No regional wall motion abnormality. Normal diastolic LV function. Right Ventricle: Normal size right ventricle. Normal RV function. Left Atrium: The left atrium is normal in size. Right Atrium: The right atrium is normal in size. Mitral Valve: There is a #28 Ziegler Physio ring. With no evidence of MR or MS.. Aortic Valve: The aortic valve is tri-leaflet. The aortic valve is normal in appearance and function. Tricuspid Valve: Mild tricuspid regurgitation is present. The pulmonary artery pressure is mildly increased. Pulmonic Valve: The pulmonic valve is normal in appearance and function. Aorta: The aorta is normal. Pericardium: No pericardial effusion. (No Signature Object) Patient: SYLWIA BOGGS Study Date: 04/07/2017 Page 2 of 2 09:42 AM [id number]
--- NOTE | 2017-04-07 13:41 | ASMTCMCOM ---
CM Note CM Note Notes: 04/07/2017 Case Management Note Spoke w/RN, reviewed chart. PT is recommending outpatient rehab and OT is recommending home with no needs. There are no case management d/c needs identified d/t pt age, martial status and activity levels prior to admission. Case Management d/c poc: home with outpatient rehab. Case Management available if needs change. Date Signed: 04/07/2017 01:41 PM Electronically Signed By:Kylah Dueñas RN
[2017-04-07] MEDS ORDERED: WARFARIN SODIUM 2.5 MG TAB PO SCH (16:00)
[2017-04-07] MEDS ORDERED: AMIODARONE HCL 540 MG in D5W 300 ML IV ONE (17:00)
[2017-04-07] MEDS ORDERED: FUROSEMIDE 40 MG/4 ML VIAL IVP ONE (21:53)
[2017-04-07] MEDS: PHENobarbital 30 MG TAB PO SCH (22:28)
[2017-04-07] MEDS: PHENYTOIN SODIUM EXTENDED 100 MG CAP PO SCH (22:29)
[2017-04-08 07:06] LABS: INR 1.69 (0.83-1.16)
--- NOTE | 2017-04-08 07:26 | SOAPPROG ---
SOAP Progress Note Assessment/Plan: POD #5: Complex MV repair with #28 Physio annuloplasty, AtriClip LAITH Severe MR s/p complex repair - Coumadin for valve thromboprophylaxis, INR goal 2-3, 3 months duration - SCDs and heparin SQ for DVT prophylaxis - PT/OT Acute blood loss anemia - Stable s/p 1U PRBC Postoperative paroxysmal atrial fibrillation h/o remote urethral stricture s/p dilatation requiring coude catheter placement - No urinary retention noted h/o epilepsy - Dilantin level ordered d/t interaction with amiodarone/Coumadin and value subtherapeutic. Pt staters levels are always "undetectable" and that neurology is aware. Possible neuro consult to reassess now that pt is on interacting meds. Disposition - Home today or tomorrow without services - [facility] Subjective: Feels well. Denies SOB/CP. Edema down. Objective: Vital Signs Temp Pulse Resp BP Pulse Ox 36.5 C 64 18 125/59 H 95 04/08/17 07:15 04/08/17 07:15 04/08/17 07:15 04/08/17 07:15 04/08/17 07:15 Laboratory Results 04/08/17 06:30 04/08/17 06:30 04/07/17 04/08/17 04/09/17 05:59 05:59 05:59 Intake Total 1460 1487 Output Total 2009 2699 Balance -550 -1213 PT 20.0 SEC (12.0-15.0) H 04/08/17 06:30 INR 1.69 (0.83-1.16) H 04/08/17 06:30 Physical Exam - Physical Exam General Appearance: WD/WN, alert, no apparent distress EENT: No scleral icterus (R), No scleral icterus (L) Neck: normal inspection Respiratory: No respiratory distress Cardiac/Chest: regular rate, rhythm Abdomen: non-tender, soft, No distended Skin: normal color, warm/dry Extremities: No pedal edema Neuro/Psych: no motor/sensory deficits, alert, normal mood/affect, oriented x 3 ICD10 Worksheet Patient Problems: Problems Problem Status Onset Acute blood loss anemia Acute Postoperative atrial fibrillation Acute Severe mitral regurgitation Acute Status post mitral valve annuloplasty Acute H/O urethral stricture Chronic
[2017-04-08] MEDS ORDERED: POTASSIUM CL 20 MEQ TAB PO ONE ×2 (07:32→19:33)
[2017-04-08] MEDS: CHOLECALCIFEROL VIT D3 1,000 UNITS TAB PO SCH (08:31)
[2017-04-08] MEDS: PANTOPRAZOLE SODIUM 40 MG TAB PO SCH (08:31)
[2017-04-08] MEDS: FUROSEMIDE 40 MG TAB PO SCH (08:32)
[2017-04-08] MEDS: METOPROLOL TARTRATE 25 MG TAB PO SCH ×2 (08:32→22:02)
[2017-04-08] MEDS: ROSUVASTATIN CALCIUM 40 MG TAB PO SCH (08:32)
[2017-04-08] MEDS: OMEGA-3 FATTY ACIDS 1,000 MG CAP PO SCH (08:32)
[2017-04-08] MEDS ORDERED: AMIODARONE HCL 200 MG TAB PO SCH (09:00)
[2017-04-08] MEDS ORDERED: POTASSIUM CL 10 MEQ TAB PO SCH (09:00)
[2017-04-08] MEDS ORDERED: WARFARIN SODIUM 2 MG TAB PO ONE (16:00)
[2017-04-08] MEDS ORDERED: WARFARIN SODIUM 2.5 MG TAB PO ONE (16:00)
[2017-04-08] MEDS: PHENobarbital 30 MG TAB PO SCH (22:00)
[2017-04-08] MEDS: PHENYTOIN SODIUM EXTENDED 100 MG CAP PO SCH (22:01)
--- NOTE | 2017-04-09 06:38 | SOAPPROG ---
SKYLAR Progress Note Assessment/Plan: POD #6: Complex MV repair with #28 Physio annuloplasty, AtriClip LAITH Severe MR s/p complex repair - Coumadin for valve thromboprophylaxis, INR goal 2-3, 3 months duration - SCDs/Coumadin for DVT prophylaxis - PT/OT Acute blood loss anemia - Stable s/p 1U PRBC Postoperative paroxysmal atrial fibrillation - Continue BB/amiodarone/Coumadin h/o remote urethral stricture s/p dilatation requiring coude catheter placement - No urinary retention noted h/o epilepsy - Dilantin level ordered d/t interaction with amiodarone/Coumadin and value subtherapeutic. Pt staters levels are always "undetectable" and that neurology is aware. Neurology spoken to on phone and stated pharmacy should guide further medication adjustments. Disposition - Home today without services - INR to be check at [facility] on Friday Subjective: Ready to go home. Denies CP/SOB. Edema resolved. Objective: Vital Signs Temp Pulse Resp BP Pulse Ox 36.5 C 65 19 99/56 L 94 04/09/17 04:00 04/09/17 04:00 04/09/17 04:00 04/09/17 04:00 04/09/17 04:00 Laboratory Results 04/08/17 06:30 04/08/17 17:50 04/08/17 04/09/17 04/10/17 05:59 05:59 05:59 Intake Total 1487 760 Output Total 2700 2100 Balance -1213 -1340 PT 20.0 SEC (12.0-15.0) H 04/08/17 06:30 INR 1.69 (0.83-1.16) H 04/08/17 06:30 Physical Exam - Physical Exam General Appearance: WD/WN, alert, no apparent distress EENT: No scleral icterus (R), No scleral icterus (L) Neck: normal inspection Respiratory: No respiratory distress Cardiac/Chest: regular rate, rhythm Abdomen: non-tender, soft, No distended Skin: normal color, warm/dry Extremities: No pedal edema Neuro/Psych: no motor/sensory deficits, alert, normal mood/affect, oriented x 3 ICD10 Worksheet Patient Problems: Problems Problem Status Onset Acute blood loss anemia Acute Postoperative atrial fibrillation Acute Severe mitral regurgitation Acute Status post mitral valve annuloplasty Acute H/O urethral stricture Chronic
[2017-04-09 07:02] LABS: INR 1.62 (0.83-1.16); PROTIME(PATIENT) 19.4 SEC (12.0-15.0)
[2017-04-09] MEDS ORDERED: METOPROLOL TARTRATE 5 MG/5 ML INJ IVP ONE (07:10)
[2017-04-09] MEDS ORDERED: AMIODARONE HCL 100 ML IV ONE (07:10)
[2017-04-09] MEDS: CHOLECALCIFEROL VIT D3 1,000 UNITS TAB PO SCH (08:15)
[2017-04-09] MEDS: POTASSIUM CL 20 MEQ TAB PO SCH (08:16)
[2017-04-09] MEDS: ROSUVASTATIN CALCIUM 40 MG TAB PO SCH (08:16)
[2017-04-09] MEDS: PANTOPRAZOLE SODIUM 40 MG TAB PO SCH (08:16)
[2017-04-09] MEDS: OMEGA-3 FATTY ACIDS 1,000 MG CAP PO SCH (08:17)
[2017-04-09] MEDS: FUROSEMIDE 20 MG TAB PO SCH (08:22)
[2017-04-09] MEDS ORDERED: AMIODARONE HCL 200 MG TAB PO SCH (09:00)
[2017-04-09] MEDS ORDERED: NS 500 ML IV SCH (09:00)
[2017-04-09] MEDS: METOPROLOL TARTRATE 50 MG TAB PO SCH ×3 (09:42→21:49)
[2017-04-09] MEDS: AMIODARONE HCL 200 MG TAB PO SCH ×2 (10:55→21:49)
[2017-04-09] MEDS ORDERED: WARFARIN SODIUM 2 MG TAB PO SCH (16:00)
[2017-04-09] MEDS: PHENobarbital 30 MG TAB PO SCH (21:48)
[2017-04-09] MEDS: PHENYTOIN SODIUM EXTENDED 100 MG CAP PO SCH (21:48)
[2017-04-10 06:19] LABS: INR 2.01 (0.83-1.16); PROTIME(PATIENT) 22.8 SEC (12.0-15.0)
--- NOTE | 2017-04-10 06:52 | SOAPPROG ---
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 Stable early postop course. Adequately diuresing moderate volume overload. Antithrombotic prophylaxis with Coumadin x 3 months, target INR 2-3. Postoperative paroxysmal atrial fibrillation - Asx bursts refractory to escalating doses of BB. Amiodarone added with good effect. [id number] score of 1. Antithrombotic prophylaxis as per mitral repair. Acute expected blood loss anemia with thrombocytopenia - Stable s/p 1u PRBC. Platelet rebound noted. Hx remote urethral stricture - Coude catheter placed intraop. Catheter removed POD#1 without incident. Epilepsy - Controlled. Anti seizure meds resumed. Plan: Adjust Coumadin. Ok for discharge. Instructions re diet, meds, activity, f/u and wound care to be reviewed in presence of . 04/10/17 06:50 Subjective: Feels well. No acute concerns. Ready for discharge. Objective: Vital Signs Temp Pulse Resp BP Pulse Ox 36.8 C 68 18 119/65 95 18 04:00 04/10/17 04:00 04/10/17 04:00 04/10/17 04:00 04/10/17 04:00 Laboratory Results 04/08/17 06:30 04/08/17 17:50 04/09/17 04/10/17 04/11/17 05:59 05:59 05:59 Intake Total 760 1650 Output Total 2100 500 Balance -1340 1150 PT 22.8 SEC (12.0-15.0) H 04/10/17 05:55 INR 2.01 (0.83-1.16) H 04/10/17 05:55 SR held overnoc. Off O2. Wt down 0.7 kg/24h and now +3 kg overall. INR beginning to rise. Physical Exam - Physical Exam General Appearance: alert, no apparent distress Respiratory: lungs clear Cardiac/Chest: regular rate, rhythm Skin: warm/dry Extremities: other (no visible edema) ICD10 Worksheet Patient Problems: Problems Problem Status Onset Acute blood loss anemia Acute Postoperative atrial fibrillation Acute Severe mitral regurgitation Acute Status post mitral valve annuloplasty Acute H/O urethral stricture Chronic
[2017-04-10 07:39] VITALS: BP 108/61; PULSE 71; RESP 12; TEMP 98.7; O2SAT 94
--- NOTE | 2017-04-10 08:12 | PDDCSUM ---
Discharge Summary Discharge Summary: DATE OF ADMISSION: 04/02/17 DATE OF DISCHARGE: 04/10/17 DISPOSITION: Home, self-care PRINCIPAL ADMISSION DIAGNOSIS: Severe myxomatous mitral valve regurgitation PRINCIPAL DISCHARGE DIAGNOSES: 1. Coronary artery disease excluded 2. Status post complex mitral valve repair 3. Status post prophylactic clip ligation of the left atrial appendage 4. Acute expected blood loss anemia with thrombocytopenia 5. Postoperative paroxysmal atrial fibrillation HISTORY OF PRESENT ILLNESS: 66 yo male with a myxomatous mitral valve and asymptomatic severe MR attributable to chordal rupture with a flail P2 admitted in advance of mitral valve repair to complete surgical risk stratification. Preop cath neg for angiographic evidence of CAD, LVSD or LVDD. PERTINENT PAST MEDICAL HISTORY: Coronary atherosclerosis by coronary calcium score, hyperlipidemia, epilepsy, urethral stricture MEDICATIONS ON ADMISSION: ASA 81 mg once weekly, Crestor 40 mg daily, Fish oil 1,000 mg daily, Vit D3 5, 000 units daily, Phenytoin 100 mg HS, Phenobarbital 30 mg HS ALLERGIES/SENSITIVITIES: NKDA CONSULTANTS: none PROCEDURES/IMAGIN/31 (Jose): Left heart catheterization with selective coronary angiography and left ventriculogram. Access right common femoral artery. 04/03 (Ashlie): Median sternotomy. Complex mitral valve repair with triangular resection of P2, goretex chordal reconstruction and annuloplasty with a 28 mm Ziegler Physio ring. Prophylactic AtriClip ligation of the left atrial appendage. 04/07 (Alexander): Transthoracic echocardiogram ABBREVIATED HOSPITAL COURSE BY ACTIVE PROBLEM LIST: 1. Severe MR - Amenable to complex repair. Stable early postop course. Moderate volume overload actively diuresed. Antithrombotic prophylaxis with Coumadin x 3 months, target INR 2-3. 2. Postoperative paroxysmal atrial fibrillation - Asx bursts refractory to escalating doses of BB. Amiodarone added with good effect. [id number] score of 1. Antithrombotic prophylaxis as per mitral repair 3. Acute expected blood loss anemia with thrombocytopenia - Stable s/p 1u PRBC. H/H > 11/27 maintained. Platelet rebound noted. 4. Epilepsy Controlled, despite historically undetectable phenytoin level. Baseline phenytoin level checked when started on amiodarone and value confirmed to be subtherapeutic. Additional surveillance as per neurology followup. DISCHARGE CLINICAL INFORMATION: Sternum grossly stable. Sternotomy CDI, sutured, +Dermabond. HR 60s-70s. SBP 100s-110s. SpO2 95% RA. Wt 3.1 kg above admission at 62.1kilos. Hgb 9.9, HCT 28.9, Plt 127, Na 138, K 3.8, Cr 0.8, phenytoin trough < 3 Coumadin flow sheet: Date INR mg 04/04 1.24 2.5 2/ 1.19 2.5 2 1.20 2.5 2 1.51 2.5 (started on amiodarone) 04/08 1.69 2 04/09 1.62 2 04/10 2.01 1 DISCHARGE MEDICATIONS: As on admission with the following adjustments: NEW prescriptions: 1. Amiodarone 200 mg BID thru 04/23, then 200 mg daily x 2 weeks. 2. Metoprolol tartrate 50 mg BID. 3. Lasix 20 mg daily until back to baseline weight. 4. Klor-Con 20 meq daily with Lasix. 5. Tramadol 50 mg q6h prn incisional discomfort. 6. Coumadin 1 mg , , Fri, Fri alternating with 2 mg , , or as directed by INR/anticoagulation clinic. FOLLOW UP APPOINTMENTS: 1. CV surgery: with Dr Dailey at [facility] on 04/15 at 9:30 am. 2. Cardiology: with Dr Garcia at [facility] within 4-6 weeks. Appointment to be established during surgical visit. FOLLOW UP TESTING: INR at [facility] on 04/11 at 1:15 pm. INR at [facility] on 04/15 before surgical appointment if feasible. CXR prior to surgical appointment.
[2017-04-10] MEDS: AMIODARONE HCL 200 MG TAB PO SCH (08:37)
[2017-04-10] MEDS: FUROSEMIDE 20 MG TAB PO SCH (08:37)
[2017-04-10] MEDS: ROSUVASTATIN CALCIUM 40 MG TAB PO SCH (08:37)
[2017-04-10] MEDS: OMEGA-3 FATTY ACIDS 1,000 MG CAP PO SCH (08:37)
[2017-04-10] MEDS: METOPROLOL TARTRATE 50 MG TAB PO SCH (08:37)
[2017-04-10] MEDS: POTASSIUM CL 20 MEQ TAB PO SCH (08:37)
[2017-04-10] MEDS: PANTOPRAZOLE SODIUM 40 MG TAB PO SCH (08:37)
[2017-04-10] MEDS: CHOLECALCIFEROL VIT D3 1,000 UNITS TAB PO SCH (08:37)
[2017-04-10] MEDS ORDERED: FLU VACC QS 2017-18 (3YR+)/PF 0.5 ML SYR (FLUARIX QUAD) IM ONE (08:43)
[2017-04-10] MEDS ORDERED: WARFARIN SODIUM 1 MG TAB PO SCH (16:00)
[2017-04-11] MEDS ORDERED: ASPIRIN 81 MG CHEWABLE TAB PO SCH (09:00)
[2017-04-11] MEDS ORDERED: WARFARIN SODIUM 2 MG TAB PO SCH (16:00)
== END 2017-04-10 11:55 | disposition home or self-care (01) | DRG 217 ==
LOC: FCATH 14:12 → F2W 16:48 → F2N 04-03 08:00 → F2W 04-04 16:55
PROVIDERS: ADMIT Thoracic Surgery (Cardiothoracic Vascular Surgery); ATTEND Thoracic Surgery (Cardiothoracic Vascular Surgery)
PROC: 4A023N7 Measurement of Cardiac Sampling and Pressure, Left Heart, Percutaneous Approach (ICD-10-PCS; 2017-04-02)
PROC: B2111ZZ Fluoroscopy of Multiple Coronary Arteries using Low Osmolar Contrast (ICD-10-PCS; 2017-04-02)
PROC: B2151ZZ Fluoroscopy of Left Heart using Low Osmolar Contrast (ICD-10-PCS; 2017-04-02)
PROC: 02UG0JZ Supplement Mitral Valve with Synthetic Substitute, Open Approach (ICD-10-PCS; principal; 2017-04-03 08:30)
PROC: 5A1221Z Performance of Cardiac Output, Continuous (ICD-10-PCS; principal; 2017-04-03 08:30)
PROC: 02BG0ZZ Excision of Mitral Valve, Open Approach (ICD-10-PCS; principal; 2017-04-03 08:30)
PROC: 02L70CK Occlusion of Left Atrial Appendage with Extraluminal Device, Open Approach (ICD-10-PCS; principal; 2017-04-03 08:30)
PROC: 30233N1 Transfusion of Nonautologous Red Blood Cells into Peripheral Vein, Percutaneous Approach (ICD-10-PCS; 2017-04-04)
DX: I34.0 Nonrheumatic mitral (valve) insufficiency (principal); D62 Acute posthemorrhagic anemia; D69.6 Thrombocytopenia, unspecified; I34.8 Other nonrheumatic mitral valve disorders; I25.10 Atherosclerotic heart disease of native coronary artery without angina pectoris; E78.5 Hyperlipidemia, unspecified; G40.909 Epilepsy, unspecified, not intractable, without status epilepticus; Z23 Encounter for immunization
CPT/HCPCS: 82947-QW; 97116-GP; 97161-GP; 97166-GO; 97530-GO; 97530-GP; 97535-GO; G0008; G8978-GP-CI; G8978-GP-CK; G8979-GP-CI; G8980-GP-CI; G8987-GO-CK; G8988-GO-CI; J0153; J0282; J0461; J0690; J1100; J1265; J1644; J1815; J1885; J1940; J2001; J2150; J2250; J2260; J2270; J2370; J2405; J2704; J2720; J2930; J3010; J3475; J7060; P9016; P9041; Q9967

== ENCOUNTER → 2017-04-15 | Outpatient (CLI) | payer OTHER | LOC: FIMAGING 08:19 | PROVIDERS: ATTEND Thoracic Surgery (Cardiothoracic Vascular Surgery) | DX: J90 Pleural effusion, not elsewhere classified (principal); Z98.890 Other specified postprocedural states ==

== ENCOUNTER → 2017-04-28 | Outpatient (CLI) | payer OTHER | LOC: FIMAGING 09:10 | PROVIDERS: ATTEND Thoracic Surgery (Cardiothoracic Vascular Surgery) | DX: Z09 Encounter for follow-up examination after completed treatment for conditions other than malignant neoplasm (principal); Z98.890 Other specified postprocedural states; J40 Bronchitis, not specified as acute or chronic; J84.10 Pulmonary fibrosis, unspecified ==